=== PATIENT | female | born 1945 | race Hispanic/Latino ===

== ENCOUNTER 2023-10-14 13:26 | Inpatient (IN) | payer MEDICARE ==
[2023-10-14 13:52] LABS: Actual Bicarbonate (HCO3v) 30.6 mEq/L (22-28); Analyzer IN Cardio ER; Base Excess 2.4 mEq/L (-2.0 to +3.0); Calcium, Ionized (venous) 1.15 mmol/L (1.16-1.32); Chloride (VBG) 101 mmol/L (98-106); Hematocrit-VBG 38 % (36.0-47.0); Hemoglobin (Hb) 12.9 g/dL (11.7-16.1); Potassium (VBG) 4.86 mmol/L (3.70-5.30); Sodium 142 mmol/L (133-146); pH (venous) 7.288 (7.32-7.43)
[2023-10-14 14:13] LABS: #Basophils 0.06 10x3/uL (0.0-0.2); %Basophils 0.7 % (0.0-1.0); %Lymphocytes 23.6 % (21.0-51.0); %Monocytes 9.8 % (0.0-10.0); %Neutrophils 64.7 % (42.0-75.0); Hematocrit 38.5 % (36.0-47.0); Hemoglobin 11.6 g/dL (12.0-16.0); Mean Corpuscular HGB CONC 30.1 g/dL (32.0-36.0); Mean Corpuscular Hemoglobin 26.5 pg (27.0-31.0); Mean Corpuscular Volume 87.9 fL (78.0-98.0); Mean Platelet Volume 9.2 fL (7.4-10.4); Platelet Count 407 10x3/uL (130-400); RBC Distribution Width 18.5 % (11.5-14.5); Red Blood Cell (RBC) Count 4.38 mill/uL (4.20-5.40)
[2023-10-14 14:38] LABS: ALT (SGPT) 14 U/L (8-55); AST (SGOT) 22 U/L (5-34); Albumin 3.6 g/dL (3.4-4.8); Alkaline Phosphatase 79 U/L (40-110); Anion Gap 15 mmol/L (10-20); BUN (Urea Nitrogen) 22 mg/dL (9.8-20.1); Bilirubin, Total 0.6 mg/dL (0.2-1.2); Calc. Creatinine Clearance 0 mL/min (70-130); Calcium 9.3 mg/dL (7.8-10.44); Carbon Dioxide 30 mmol/L (23-31); Chloride 101 mmol/L (98-107); Estimated GFR 61; Glucose 104 mg/dL (83-110); Potassium 4.7 mmol/L (3.5-5.1); Protein, Total 8.6 g/dL (5.8-8.1); Sodium 141 mmol/L (136-145)
[2023-10-14] MEDS ORDERED: cefTRIAXone (ROCEPHIN) 2 GM VIAL ONE (14:39)
[2023-10-14] MEDS ORDERED: Furosemide 40 MG (4 mL) VIAL ONE (14:39)
[2023-10-14] MEDS ORDERED: Sodium Chloride 0.9% 100 ML ONE (14:40)
[2023-10-14] MEDS ORDERED: methylPREDNISolone Sod Succ/PF 125 MG/2 ML VIAL ONE (14:40)
[2023-10-14 14:43] LABS: Troponin I 0.035 ng/mL (< 0.028)
[2023-10-14 14:49] LABS: INR-International Normal Ratio 1.1; PTT 28.8 sec (22.9-36.1); Prothrombin Time 14.7 sec (12.0-14.7)
[2023-10-14] MEDS ORDERED: Azithromycin 500 MG VIAL ONE ×2 (15:13→15:16)
[2023-10-14] MEDS ORDERED: Ipratropium/Albuterol 3 ML NEB ONE (15:24)
[2023-10-14 15:36] LABS: Influenza A by NAA Not Detected (NotDetected); Influenza B by NAA Not Detected (NotDetected); SARS-CoV-2 NAA Rapid Test Not Detected (NotDetected)
[2023-10-14 15:48] LABS: Bilirubin Negative (Negative); Blood, Urine Trace (Negative); Glucose, Urine (Dipstick) Negative (Negative); Ketone, Urine Negative (Negative); Leukocyte Negative (Negative); Nitrite Positive (Negative); Protein, Urine (Dipstick) Trace mg/dL (Neg-Trace); Urobilinogen 0.2 mg/dL (Less than 2); pH, Urine 6.5 (5.0-9.0)
[2023-10-14 15:59] LABS: CAUTI Indications for Culture Alt mental st,lethar; RBC/HPF 0-3 HPF (0-3); Squamous Epithelial 0-3 HPF (0-3); WBC/HPF 0-3 HPF (0-3)
[2023-10-14 16:00] LABS: Bacteria/HPF 3+ HPF (None Seen); Clarity Hazy (Clear)
[2023-10-14 16:01] LABS: Urine Culture Reflex No No
[2023-10-14] MEDS ORDERED: Dextrose 50% Abboject 50 ML SYRINGE SLOW IVP PRN (16:42)
[2023-10-14] MEDS ORDERED: Ipratropium/Albuterol 3 ML NEB NEB PRN (16:42)
[2023-10-14] MEDS ORDERED: hydrALAZINE 20 MG/ML VIAL SLOW IVP PRN (16:42)
[2023-10-14] MEDS ORDERED: Dextrose 5% in Water 1,000 ML IV PRN (16:42)
[2023-10-14] MEDS ORDERED: Glucagon 1 MG/ML KIT IM PRN (16:42)
[2023-10-14] MEDS ORDERED: Acetaminophen 325 MG TAB PO PRN (16:42)
[2023-10-14 17:14] LABS: Actual Bicarbonate (HCO3v) 30.1 mEq/L (22-28); Base Excess 2.7 mEq/L (-2.0 to +3.0); Chloride (VBG) 101 mmol/L (98-106); Hematocrit-VBG 39 % (36.0-47.0); Hemoglobin (Hb) 13.2 g/dL (11.7-16.1); Potassium (VBG) 5.28 mmol/L (3.70-5.30); Sodium 141 mmol/L (133-146); pH (venous) 7.327 (7.32-7.43)
[2023-10-14] MEDS: Ipratropium/Albuterol 3 ML NEB NEB SCH (19:13)
[2023-10-14] MEDS ORDERED: Albuterol 2.5 MG (3 mL) NEB NEB PRN (19:22)
[2023-10-14] MEDS: methylPREDNISolone Sod Succ 40 MG VIAL IVP SCH (20:07)
[2023-10-14] MEDS: Losartan 25 MG TAB PO SCH (20:08)
[2023-10-14] MEDS: Atorvastatin Calcium 10 MG TAB PO SCH (20:08)
[2023-10-15 00:39] VITALS: BMI 33.3
[2023-10-15] MEDS: Furosemide 40 MG (4 mL) VIAL SLOW IVP SCH (06:25)
[2023-10-15 06:32] LABS: #Basophils Less than 0.03 10x3/uL (0.0-0.2); #Eosinphils Less than 0.03 10x3/uL (0.0-0.7); %Basophils 0.2 % (0.0-1.0); %Lymphocytes 16.6 % (21.0-51.0); %Monocytes 1.2 % (0.0-10.0); %Neutrophils 81.5 % (42.0-75.0); Hematocrit 37.4 % (36.0-47.0); Hemoglobin 11.4 g/dL (12.0-16.0); Mean Corpuscular HGB CONC 30.5 g/dL (32.0-36.0); Mean Corpuscular Hemoglobin 26.2 pg (27.0-31.0); Mean Platelet Volume 8.9 fL (7.4-10.4); Platelet Count 385 10x3/uL (130-400); RBC Distribution Width 18.2 % (11.5-14.5); Red Blood Cell (RBC) Count 4.35 mill/uL (4.20-5.40)
[2023-10-15] MEDS: HumaLOG 300 UNITS/3 ML VIAL SC PRN ×2 (06:32→23:48)
[2023-10-15 07:35] LABS: Anion Gap 15 mmol/L (10-20); BUN (Urea Nitrogen) 27 mg/dL (9.8-20.1); Calc. Creatinine Clearance 62 mL/min (70-130); Calcium 9.1 mg/dL (7.8-10.44); Carbon Dioxide 31 mmol/L (23-31); Chloride 101 mmol/L (98-107); Estimated GFR 63; Glucose 167 mg/dL (83-110); Potassium 5.2 mmol/L (3.5-5.1); Sodium 142 mmol/L (136-145)
[2023-10-15] MEDS: Insulin Glargine 30 UNITS/0.3 ML VIAL SC SCH (08:57)
[2023-10-15] MEDS: Escitalopram Oxalate 10 mg Tablet PO SCH (08:57)
[2023-10-15] MEDS: Pantoprazole 40 MG VIAL IVP SCH (08:57)
[2023-10-15 10:31] LABS: ALV-art Gradient 55.965 mmHg (0-20); Actual Bicarbonate (HCO3a) 31.6 mEq/L (22-28); Base Excess (BEa) 3.9 mEq/L (-2.0 to +3.0); CO2 Tension 62.7 mmHg (35.0-45.0); Calcium, Ionized (arterial) 1.15 mmol/L (1.12-1.30); Carboxyhemoglobin (COHb) 0.7 gm% (0.0-3.0); Hematocrit-ABG 36 % (36.0-47.0); Hemoglobin (Hb) 12.3 g/dL (12.0-16.0); O2 Tension (PaO2), arterial 65.3 mmHg (> 70.0); Potassium - ABG Lab 4.43 mmol/L (3.70-5.30); Puncture Site RRA
[2023-10-15] MEDS: cefTRIAXone\\ROCEPHIN 1 GM in Sodium Chloride 0.9% 100 ML IVPB SCH (13:37)
[2023-10-15] MEDS: Azithromycin 500 MG in Sodium Chloride 0.9% 250 ML 250 ML IVPB SCH (14:14)
[2023-10-15] MEDS: methylPREDNISolone Sod Succ 40 MG VIAL IVP SCH (17:07)
[2023-10-15] MEDS: metFORMIN 500 MG TAB PO SCH (17:07)
[2023-10-16 07:26] LABS: #Basophils Less than 0.03 10x3/uL (0.0-0.2); #Eosinphils Less than 0.03 10x3/uL (0.0-0.7); %Basophils 0.1 % (0.0-1.0); %Lymphocytes 14.1 % (21.0-51.0); %Monocytes 7.1 % (0.0-10.0); %Neutrophils 78.1 % (42.0-75.0); Hemoglobin 11.7 g/dL (12.0-16.0); Mean Corpuscular HGB CONC 30.8 g/dL (32.0-36.0); Mean Corpuscular Hemoglobin 26.8 pg (27.0-31.0); Mean Corpuscular Volume 87.2 fL (78.0-98.0); Mean Platelet Volume 8.9 fL (7.4-10.4); Platelet Count 418 10x3/uL (130-400); RBC Distribution Width 18.2 % (11.5-14.5); Red Blood Cell (RBC) Count 4.36 mill/uL (4.20-5.40)
[2023-10-16 07:39] LABS: Anion Gap 13 mmol/L (10-20); BUN (Urea Nitrogen) 39 mg/dL (9.8-20.1); Calc. Creatinine Clearance 52 mL/min (70-130); Calcium 9.3 mg/dL (7.8-10.44); Carbon Dioxide 35 mmol/L (23-31); Chloride 99 mmol/L (98-107); Estimated GFR 52; Glucose 246 mg/dL (83-110); Potassium 4.6 mmol/L (3.5-5.1); Sodium 142 mmol/L (136-145)
[2023-10-16] MEDS: Escitalopram Oxalate 10 mg Tablet PO SCH (08:53)
[2023-10-16] MEDS: Alogliptin 25 MG TAB PO SCH (08:53)
[2023-10-16 11:35] LABS: Base Excess 6.9 mEq/L (-2.0 to +3.0); Chloride (VBG) 97 mmol/L (98-106); Hematocrit-VBG 38 % (36.0-47.0); Hemoglobin (Hb) 12.9 g/dL (11.7-16.1); Potassium (VBG) 4.47 mmol/L (3.70-5.30); Sodium 141 mmol/L (133-146); pH (venous) 7.372 (7.32-7.43)
[2023-10-17 05:58] LABS: Anion Gap 16 mmol/L (10-20); BUN (Urea Nitrogen) 44 mg/dL (9.8-20.1); Calc. Creatinine Clearance 48 mL/min (70-130); Carbon Dioxide 31 mmol/L (23-31); Chloride 100 mmol/L (98-107); Estimated GFR 48; Glucose 179 mg/dL (83-110); Potassium 5.2 mmol/L (3.5-5.1); Sodium 142 mmol/L (136-145)
[2023-10-17] MEDS: Insulin Glargine 30 UNITS/0.3 ML VIAL SC SCH (08:20)
[2023-10-17 14:01] VITALS: BP 173/69
[2023-10-18] MEDS: Pantoprazole DR 40 MG TAB PO SCH (09:50)
[2023-10-18 12:21] VITALS: TEMP 97.9
== END 2023-10-18 13:43 | disposition home or self-care (01) | DRG 193 ==
LOC: ERS 13:26 → IMCU/EMU 15:59
PROVIDERS: ADMIT Internal Medicine; ATTEND Family Medicine
PROC: 4A033R1 Measurement of Arterial Saturation, Peripheral, Percutaneous Approach (ICD-10-PCS; principal; 2023-10-15)
DX: J18.9 Pneumonia, unspecified organism (principal); G93.41 Metabolic encephalopathy; I50.33 Acute on chronic diastolic (congestive) heart failure; J96.21 Acute and chronic respiratory failure with hypoxia; J96.22 Acute and chronic respiratory failure with hypercapnia; J44.1 Chronic obstructive pulmonary disease with (acute) exacerbation; N39.0 Urinary tract infection, site not specified; B96.20 Unspecified Escherichia coli [E. coli] as the cause of diseases classified elsewhere; I11.0 Hypertensive heart disease with heart failure; E11.9 Type 2 diabetes mellitus without complications; E78.5 Hyperlipidemia, unspecified; F32.A Depression, unspecified; Z79.4 Long term (current) use of insulin; Z79.899 Other long term (current) drug therapy; Z93.0 Tracheostomy status
CPT/HCPCS: 36415; 36416; 36600; 70450; 71045; 80048; 80053; 81001; 82805; 83605; 83880; 84443; 84484; 85025; 85610; 85730; 87077; 87086; 87186; 93005; 94640; 94760; 96365; 96367; 96375; C9113; J0456; J0696; J1815; J1940; J2920; J2930; J3490; J7050; J7620